=== PATIENT | female | born 1990 | race African-American/Black ===

== ENCOUNTER → 2020-05-05 | Outpatient (CLI) | payer OTHER ==
[~2020-05-05] MED LIST: 0.9 % SODIUM CHLORIDE 10 ML DISP.SYRIN. ID ONE; GADOTERATE 5 MMOL/10ML VIAL. INT ART ONE; IOHEXOL 300 MG/ML 50 ML VIAL. INT ART ONE; LIDOCAINE 1% Multi-Dose 20 ML VIAL. ID ONE
--- NOTE | 2020-05-05 15:14 | KCIC ---
Examination: MRI right shoulder arthrogram HISTORY: History of right shoulder pain COMPARISON: None available Technique: Multiplanar, multisequence MR imaging of the right shoulder performed after arthrogram injection FINDINGS: The long head of the biceps tendon within the bicipital groove. The attachment of the long head the biceps tendon to the superior labral anchor grossly appears intact. FINDINGS: The attachment of the subscapularis, supraspinatus, interspinous tendon grossly appears intact. Mild increased signal identified in the supraspinatus and infraspinatus tendon likely mild tendinosis. No evidence of full-thickness rotator cuff tear identified. The muscle bulk grossly appears unremarkable. The acromion is type II. The visualized labrum grossly appears unremarkable. Fat is present within the rotator interval. IMPRESSION: 1. Minimal rotator cuff tendinosis. Otherwise unremarkable exam. Electronically signed by: Hamlet Pickard MD (05/05/2020 3:11 PM) [id number]
--- NOTE | 2020-05-05 15:16 | KCIC ---
Examination: Right Shoulder Arthrogram: Indications: Right shoulder pain. Procedure: Risks, benefits and complications including bleeding, infection, blood vessel damage or joint infection were discussed with the patient. Questions were answered and consent form signed. The patient was placed supine on the fluoroscopy table with the shoulder slightly externally rotated. Bony landmarks were used to plan for fluoroscopic injection. The patient was carefully prepped and draped in a sterile fashion. Using fluoroscopic guidance, local anesthetic and a 22 gauge needle the joint space was entered. Intra-articular location was confirmed as approximately 12cc of a mixture of iodinated contrast gadolinium agent and sterile saline was injected to distend the shoulder joint. The procedure was well tolerated and the patient was sent to MRI. No immediate complications Total fluoroscopic time was 20 seconds. Total fluoroscopic images 1. Impression: Status post fluoroscopic guided arthrogram in preparation for MRI with contrast. Electronically signed by: Hamlet Pickard MD (05/05/2020 3:13 PM) [id number]
== END | disposition home or self-care (01) ==
LOC: KCIC 12:45
PROVIDERS: ATTEND Family Medicine
DX: M25.511 Pain in right shoulder (principal); M75.81 Other shoulder lesions, right shoulder; Z98.890 Other specified postprocedural states
CPT/HCPCS: 23350; 73040; 73222; A9575; J3490; Q9967